=== PATIENT | female | born 1955 | race Caucasian/White ===

== ENCOUNTER 2021-11-13 11:14 | Outpatient (CLI) | payer BC ==
[2021-11-13 12:40] LABS: Hemoglobin 13.1 g/dL (12.0-15.5); Mean Corpuscular HGB CONC 32.8 g/dL (32.0-36.0); Mean Corpuscular Hemoglobin 30.5 pg (27.0-33.0); Mean Corpuscular Volume 92.8 fl (81.6-98.3); Mean Platelet Volume 9.2 fl (7.4-10.4); Platelet Count 259 10x3/uL (150-450); RBC Distribution Width 12.3 % (11.5-14.5); White Blood Cell (WBC) Count 5.4 10x3/uL (3.5-10.5)
[2021-11-13 12:59] LABS: Anion Gap 13 mmol/L (10-20); BUN (Urea Nitrogen) 10 mg/dL (9.8-20.1); Calc. Creatinine Clearance 0 mL/min (70-130); Calcium 9.7 mg/dL (7.8-10.44); Carbon Dioxide 27 mmol/L (23-31); Chloride 103 mmol/L (98-107); Glucose 91 mg/dL (80-115); Potassium 4.9 mmol/L (3.5-5.1); Sodium 138 mmol/L (136-145)
[2021-11-13 23:15] LABS: SARS-CoV-2 PCR by NAA Not Detected (NotDetected)
== END 2021-11-13 11:15 | disposition home or self-care (01) ==
LOC: CSHLAB 11:14
PROVIDERS: ATTEND Podiatrist Foot & Ankle Surgery
DX: Z01.818 Encounter for other preprocedural examination (principal); Z20.822 Contact with and (suspected) exposure to COVID-19; M21.611 Bunion of right foot; M25.374 Other instability, right foot
CPT/HCPCS: 80048; 85027; 93005; 93010; U0003; U0005

== ENCOUNTER 2021-11-18 09:30 | Day surgery (SDC) | payer BC ==
[2021-11-13 14:44] VITALS: BMI 22.2
[2021-11-18] MEDS ORDERED: Lidocaine 1% MPF 2 ML VIAL ONE (10:04)
[2021-11-18] MEDS ORDERED: Neomycin-Polymyxin 1 ML AMP ONE (10:07)
[2021-11-18] MEDS ORDERED: Bupivacaine PF 0.5% 30 ML VIAL ONE (10:10)
[2021-11-18] MEDS ORDERED: ceFAZolin 2 GM/Dextrose 50 ML IVPB ONE (10:36)
[2021-11-18] MEDS ORDERED: Dexmedetomidine 200 MCG/2 ML VIAL ONE (11:07)
[2021-11-18] MEDS ORDERED: PROPOFOL 20 ML ONE (11:23)
[2021-11-18] MEDS ORDERED: Fentanyl 100 MCG/2 ML VIAL ONE (11:24)
[2021-11-18] MEDS ORDERED: Lidocaine 2% PF 5 ML VIAL ONE (11:24)
[2021-11-18] MEDS ORDERED: Ketorolac Tromethamine 30 MG/ML VIAL ONE (11:24)
[2021-11-18] MEDS ORDERED: Dexamethasone 20 MG/5 ML VIAL ONE (11:26)
[2021-11-18] MEDS ORDERED: Ropivacaine 0.2% 550 ML 550 ML NERVE BLCK SCH (11:30)
[2021-11-18] MEDS ORDERED: Zolpidem Tartrate 5 MG TAB PO PRN (11:30)
[2021-11-18] MEDS ORDERED: Ondansetron PF 4 MG/2 ML Vial IVP PRN (11:30)
[2021-11-18] MEDS ORDERED: Promethazine HCl 25 MG/ML VIAL IM PRN (11:30)
[2021-11-18] MEDS ORDERED: ePHEDrine Sulfate 50 MG/10 ML VIAL ONE (12:10)
[2021-11-18] MEDS ORDERED: Ondansetron PF 4 MG/2 ML Vial ONE (12:12)
== END 2021-11-18 15:20 | disposition home or self-care (01) ==
LOC: CSHSDC 09:30
PROVIDERS: ATTEND Podiatrist Foot & Ankle Surgery
DX: M20.11 Hallux valgus (acquired), right foot (principal); M25.374 Other instability, right foot; M25.571 Pain in right ankle and joints of right foot
CPT/HCPCS: A4306; C1713; C1769; C1776; C2626; J0690; J1100; J1885; J2001; J2405; J2704; J2795; J3010; S0020

== ENCOUNTER 2021-12-17 08:16 | Outpatient (CLI) | payer BC ==
[2021-12-17 20:33] LABS: SARS-CoV-2 PCR by NAA Not Detected (NotDetected)
== END 2021-12-17 08:17 | disposition home or self-care (01) ==
LOC: CSHLAB 08:16
PROVIDERS: ATTEND Internal Medicine Gastroenterology
DX: Z20.822 Contact with and (suspected) exposure to COVID-19 (principal); Z12.11 Encounter for screening for malignant neoplasm of colon
CPT/HCPCS: U0003; U0005

== ENCOUNTER 2021-12-18 07:11 | Day surgery (SDC) | payer BC ==
[2021-12-17 14:09] VITALS: BMI 23.3
[2021-12-18] MEDS ORDERED: PROPOFOL 40 ML ONE (09:04)
[2021-12-18] MEDS ORDERED: Lidocaine 1% PF 5 ML VIAL ONE (09:04)
[2021-12-18] MEDS ORDERED: PROPOFOL 20 ML ONE (09:45)
== END 2021-12-18 10:50 | disposition home or self-care (01) ==
LOC: CSHSDC 07:11
PROVIDERS: ATTEND Internal Medicine Gastroenterology
PROC: 0DJD8ZZ Inspection of Lower Intestinal Tract, Via Natural or Artificial Opening Endoscopic (ICD-10-PCS; principal; 2021-12-18)
DX: Z12.11 Encounter for screening for malignant neoplasm of colon (principal); K64.9 Unspecified hemorrhoids; Z86.010 Personal history of colon polyps; E03.9 Hypothyroidism, unspecified; H40.9 Unspecified glaucoma; Z85.828 Personal history of other malignant neoplasm of skin; Z20.822 Contact with and (suspected) exposure to COVID-19
CPT/HCPCS: J2704

== ENCOUNTER 2022-03-17 10:47 | Outpatient (CLI) | payer BC | END 2022-03-17 10:48 | disposition home or self-care (01) | LOC: CSHMAMMO 10:47 | PROVIDERS: ATTEND Family Medicine | DX: Z12.31 Encounter for screening mammogram for malignant neoplasm of breast (principal) | CPT/HCPCS: 77063; 77067 ==

== ENCOUNTER 2023-03-23 10:41 | Outpatient (CLI) | payer MEDICARE, BC | END 2023-03-23 10:42 | disposition home or self-care (01) | LOC: CSHMAMMO 10:41 | PROVIDERS: ATTEND Obstetrics & Gynecology | DX: Z12.31 Encounter for screening mammogram for malignant neoplasm of breast (principal) | CPT/HCPCS: 77063; 77067 ==

== ENCOUNTER 2024-06-01 14:31 | Outpatient (CLI) | payer MEDICARE | END 2024-06-01 14:32 | disposition home or self-care (01) | LOC: CSHMRI 14:31 | PROVIDERS: ATTEND Internal Medicine | DX: M54.32 Sciatica, left side (principal); M43.16 Spondylolisthesis, lumbar region; M48.061 Spinal stenosis, lumbar region without neurogenic claudication; M47.816 Spondylosis without myelopathy or radiculopathy, lumbar region | CPT/HCPCS: 72148 ==

== ENCOUNTER 2025-04-06 09:31 | Outpatient (CLI) | payer MEDICARE | END 2025-04-06 09:32 | disposition home or self-care (01) | LOC: CSHMAMMO 09:31 | PROVIDERS: ATTEND Obstetrics & Gynecology | DX: Z12.31 Encounter for screening mammogram for malignant neoplasm of breast (principal); Z85.820 Personal history of malignant melanoma of skin; N64.89 Other specified disorders of breast | CPT/HCPCS: 77063; 77067 ==